=== PATIENT | female | born 1945 | race Asian ===

== ENCOUNTER 2021-07-06 11:34 | Emergency (ER) | payer MEDICAID ==
[~2021-07-06] VITALS: Ht 157.5 cm; Wt 67.1 kg
--- NOTE | 2021-07-06 11:55 | NUR ---
Recived pt 75 yrs female [employer] by [employer] c/o pain 9/10 and nubmess on lt arn no hx trama able to move here finger no weeknss skin warm and dry to touch
[2021-07-06] MEDS ORDERED: KETOROLAC TROMETHAMINE INJ 30 MG/ML VIAL IM ONE (12:00)
--- NOTE | 2021-07-06 12:00 | NUR ---
Examin by DR. Olson
--- NOTE | 2021-07-06 12:05 | NUR ---
x ray done on rt arm and wrist
[2021-07-06] MEDS ORDERED: KETOROLAC TROMETHAMINE 15 MG/ML VIAL ONE (12:08)
--- NOTE | 2021-07-06 12:22 | NUR ---
US ON RT ARM R/O blood clots
[2021-07-06] MEDS ORDERED: IBUP-1955 PO (13:26)
--- NOTE | 2021-07-06 13:55 | NUR ---
D/C INSTRACTION GIVEN TO PT FULLY AND VERBLIZED UNDERSTOOD D/C HOME WITH rx pain controled
[2021-07-06 13:56] VITALS: BP 102/59
== END 2021-07-06 13:57 | disposition home or self-care (01) ==
LOC: ER 11:39
DX: M25.531 Pain in right wrist (principal); Z79.1 Long term (current) use of non-steroidal anti-inflammatories (NSAID)
CPT/HCPCS: 73110; 73130; 82962; 93971; 96372; 99284; J1885